=== PATIENT | male | born 1970 | race Caucasian/White ===

== ENCOUNTER → 2025-01-25 06:26 | Outpatient (REF) | payer BC, SELFPAY ==
[2025-01-25 10:30] LABS: Urine Albumin 1+ (Neg - Trace); Urine Bilirubin Negative (Negative); Urine Character Clear (Clear); Urine Color Yellow; Urine Glucose Negative (Negative); Urine Ketone Negative (Negative); Urine Leukocyte Negative (Negative); Urine Nitrite Negative (Negative); Urine Occult Blood Negative (Negative); Urine Specific Gravity 1.025 (<1.030); Urine Urobilinogen Negative (Neg - 1+)
[2025-01-25 10:33] LABS: Glycohemoglobin (HgbA1c) 5.7 % (4.0-5.6)
[2025-01-25 11:12] LABS: % Basophils 0.8 % (0-2); % Eosinophils 2.8 % (0-6); % Immature Granulocytes 0.5 % (0-0.5); % Lymphocytes 28.1 % (20.5-51.1); % Monocytes 9.3 % (1.7-9.3); % Neutrophils 58.5 % (42.2-75.2); Absolute Basophils 0.1 10^3/uL (0-0.2); Absolute Eosinophils 0.2 10^3/uL (0-0.7); Absolute Lymphocytes 1.8 10^3/uL (1.2-3.4); Absolute Monocytes 0.6 10^3/uL (0.1-0.6); Absolute Neutrophils 3.8 10^3/uL (1.4-6.5); Hematocrit 43.6 % (39.0-52.0); Hemoglobin 15.3 g/dL (13.0-18.0); Mean Corp Hgb Conc. 35.1 g/dL (33.0-37.0); Mean Corpuscular Hgb 28.7 pg (27.0-31.0); Mean Corpuscular Volume 81.6 fL (80.0-94.0); Mean Platelet Volume 10.6 fL (7.4-10.4); Nucleated Red Blood Cells % 0 % (-); Platelet Count 228 10^3/uL (130-400); Red Blood Cell Count 5.34 10^6/uL (4.70-6.10); Red Cell Dist. Width 12.2 % (11.5-14.5); White Blood Cell Count 6.5 10^3/uL (4.8-10.8)
[2025-01-25 12:10] LABS: ALT (SGPT) 35 U/L (0-50); AST (SGOT) 33 U/L (17-59); Albumin 5.2 g/dl (3.5-5.0); Alkaline Phosphatase 91 U/L (38-126); Blood Urea Nitrogen 17 mg/dl (9-20); Calcium 9.8 mg/dl (8.4-10.2); Carbon Dioxide 26 mmol/L (22-30); Chloride 99 mmol/L (98-107); Glucose 99 mg/dl (70-99); HDL Cholesterol 33 mg/dl; LDL Cholesterol, Calculated 69 mg/dl; Potassium 4.4 mmol/L (3.5-5.1); Sodium 140 mmol/L (135-145); Total Cholesterol 153 mg/dl (50-199); Total Protein 7.4 g/dl (6.3-8.2); Triglyceride 257 mg/dl (10-149); Very Low Density Lipoprotein 51 mg/dl (0-30); eGFR > 60.00
[2025-01-25 12:26] LABS: PSA, Total - Screen 0.62 ng/ml (0.0-4.0); TSH Reflex To Free T4 0.59 uIU/ml (0.47-4.68)
[2025-01-25 12:38] LABS: Urine Mucus Many; Urine Squamous Cell 0-2 /LPF (Few)
[2025-01-25 12:39] LABS: Urine Amorphous Seen; Urine Red Blood Cell 0-2 /HPF (0-2); Urine White Cell 0-2 /HPF (0-5)
== END ==
LOC: HWLAB 06:26
PROVIDERS: ATTENDING PHYSICIAN Family Medicine
DX: R73.01 Impaired fasting glucose (principal); E78.49 Other hyperlipidemia; R94.5 Abnormal results of liver function studies
CPT/HCPCS: 36415; 80053; 80061; 81003; 81015; 83036; 84443; 85025; G0103